=== PATIENT | female | born 1995 | race Caucasian/White ===

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

== ENCOUNTER 2017-01-04 21:39 | Emergency (ER) | payer OTHER ==
--- NOTE | 2017-01-04 21:45 | UC ---
Ear Complaint HPI - HPI Summary HPI Summary: 21 year old female with ear pain and some jaw pain as well. No fevers. no Chills. (+) sick exposure at school. - History of Current Complaint Stated Complaint: EAR/JAW PAIN Time Seen by Provider: 01/04/17 21:42 Hx Obtained From: Patient Hx Last Menstrual Period: 12/16/16 Onset/Duration: Gradual Onset Severity Initially: Mild Severity Currently: Moderate Associated Signs/Symptoms: Negative: Discharge - Allergies/Home Medications Allergies/Adverse Reactions: Allergies Allergy/AdvReac Type Severity Reaction Status Date / Time No Known Allergies Allergy Verified 01/04/17 21:46 Home Medications: Home Medications Acetaminophen [Acetaminophen Extra Stren] 1,000 mg PO ONCE 01/04/17 [History Confirmed 01/04/17] PMH/Surg Hx/FS Hx/Imm Hx Previously Healthy: Yes - Surgical History Surgical History: None - Family History Known Family History: Positive: None - Social History Occupation: Student Lives: Dormitory/Roommates Alcohol Use: Weekly Substance Use Type: None Smoking Status (MU): Never Smoked Tobacco - Immunization History Most Recent Influenza Vaccination: no Review of Systems ENT: Ear Ache - and jaw pain All Other Systems Reviewed And Are Negative: Yes Physical Exam Triage Information Reviewed: Yes Appearance: Well-Appearing, No Pain Distress, Well-Nourished Vital Signs Reviewed: Yes Eye Exam: Normal ENT Exam: Normal ENT: Positive: TM dull - left, Other: - left TMJ tenderness Dental Exam: Normal Neck exam: Normal Neck: Positive: 1 Respiratory Exam: Normal Cardiovascular Exam: Normal Musculoskeletal Exam: Normal Neurological Exam: Normal Psychological Exam: Normal Skin Exam: Normal Ear Complaint Course/Dx - Differential Dx/Diagnosis Differential Diagnosis/HQI/PQRI: Otitis Externa, Otitis Media, Perforated TM, URI Provider Diagnoses: TMJ left sided and left serous effusion Discharge - Discharge Plan Condition: Good Disposition: HOME Prescriptions: Naproxen [Naprosyn 500 mg] 500 mg PO BID PRN #20 tab PRN Reason: Pain (Dental) Patient Education Materials: Temporomandibular Disorder (ED) Referrals: Non Staff,Doctor [Primary Care Provider] - 4 Days (If needed ) Additional Instructions: For the serous effusion / fluid in the ear please use daily allergy medications like claritin.
[2017-01-04 21:46] VITALS: BP 119/72
== END 2017-01-04 21:56 | disposition home or self-care (01) ==
LOC: UCCORT 21:39
DX: M26.602 Left temporomandibular joint disorder, unspecified (principal); H65.92 Unspecified nonsuppurative otitis media, left ear
CPT/HCPCS: 99212; G0463

== ENCOUNTER 2017-01-25 12:36 | Emergency (ER) | payer MEDICAID, OTHER ==
[2017-01-25 14:03] VITALS: BP 127/64
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
== END 2017-01-25 14:58 | disposition home or self-care (01) ==
LOC: UCCORT 12:36
DX: S39.94XA Unspecified injury of external genitals, initial encounter (principal); X58.XXXA Exposure to other specified factors, initial encounter; Y93.89 Activity, other specified; Y92.9 Unspecified place or not applicable; N93.9 Abnormal uterine and vaginal bleeding, unspecified
CPT/HCPCS: 99211; G0463

== ENCOUNTER 2017-07-04 12:53 | Emergency (ER) | payer OTHER ==
[2017-07-04 13:19] VITALS: BP 111/67
--- NOTE | 2017-07-04 13:32 | UC ---
General HPI - HPI Summary HPI Summary: For the past few weeks she has been getting flushed, palpitations and "worked up " when she is in crowds or being called up on class. She denies cardiac ischemic equivalents, syncope, swelling, PND, orthopnea. She has had no problems in the past and has played sports for years without excersize intolerance, syncope. Her mother tells her that she has had a murmur since childhood. Recently she has been concerned that she is only eating fast food and not excersizing enough. Sexually active only with condoms and currently is on her period. Denies drugs or smoking. Etoh on the weekends alone. - History of Current Complaint Chief Complaint: UCGeneralIllness Stated Complaint: PALPITATIONS Time Seen by Provider: 07/04/17 13:05 Hx Obtained From: Patient Hx Last Menstrual Period: 06/30/17 Onset/Duration: Gradual Onset, Lasting Minutes Timing: Constant Onset Severity: Moderate Current Severity: None Pain Intensity: 3 Associated Signs & Symptoms: Positive: Palpitations. Negative: Abdominal Pain, Confusion, Cough, Chest Pain, Decreased Responsiveness, Dizziness, Diarrhea, Dysuria, Fever, Headache, Nausea, Recent Medication Changes, Syncope, SOB - Allergy/Home Medications Allergies/Adverse Reactions: Allergies Allergy/AdvReac Type Severity Reaction Status Date / Time No Known Allergies Allergy Verified 07/04/17 13:01 Home Medications: Home Medications Fluconazole [Diflucan 150 MG (NF)] 150 mg PO ONCE 07/04/17 [History Confirmed ] metroNIDAZOLE TAB* [Flagyl 250 mg TAB*] 500 mg PO BID 07/04/17 [History Confirmed 07/04/17] PMH/Surg Hx/FS Hx/Imm Hx Previously Healthy: Yes - Surgical History Surgical History: None - Family History Known Family History: Positive: None - Social History Occupation: Student Alcohol Use: Weekly Substance Use Type: None Smoking Status (MU): Never Smoked Tobacco Have You Smoked in the Last Year: No - Immunization History Most Recent Influenza Vaccination: no Review of Systems Cardiovascular: Palpitations All Other Systems Reviewed And Are Negative: Yes Physical Exam Triage Information Reviewed: Yes Appearance: Well-Appearing, No Pain Distress, Well-Nourished Vital Signs: Initial Vital Signs Temp 98.4 F 07/04/17 13:04 Pulse 72 07/04/17 13:04 Resp 18 07/04/17 13:04 BP 111/67 07/04/17 13:04 Pulse Ox 99 07/04/17 13:04 Vital Signs Reviewed: Yes Eyes: Positive: Conjunctiva Clear. Negative: Conjunctiva Inflamed ENT: Positive: Hearing grossly normal, Pharynx normal, TMs normal, Uvula midline Neck: Positive: Supple, Nontender, No Lymphadenopathy Respiratory: Positive: Lungs clear, Normal breath sounds, No respiratory distress, No accessory muscle use. Negative: Respiratory distress, Decreased breath sounds, Accessory muscle use, Crackles, Rhonchi, Stridor, Wheezing Cardiovascular Exam: Other - 04/07 holosystolic murmur over the left 3rd intercostal space. Cardiovascular: Positive: RRR, Pulses Normal, Brisk Capillary Refill Abdomen Description: Positive: No Organomegaly, Soft. Negative: Distended, Guarding Musculoskeletal: Positive: Strength Intact, ROM Intact, No Edema Neurological: Positive: Alert, Muscle Tone Normal. Negative: Fatigued Psychological: Positive: Age Appropriate Behavior Skin: Negative: rashes Course/Dx - Course Course Of Treatment: We have considered drug use but there is no stigmata of use. She adamantly denies it. 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 THese symptoms only occur when she is onthe spot in crowds or in class when called upon. She agrees to speak with mother and with student health to consider counselling. She denies depression or suicidal thoughts without hesitation. - Differential Dx - Multi-Symptom Provider Diagnoses: palpitations. anxiety. Discharge - Sign-Out/Discharge Documenting (check all that apply): Discharge - Discharge Plan Condition: Good Disposition: HOME Patient Education Materials: Heart Palpitations (ED) Referrals: Non Staff,Doctor [Primary Care Provider] - Additional Instructions: Discuss your concerns with parents and student health to come up with a plan about possible stress relief, counselling. - Billing Disposition and Condition Condition: GOOD Disposition: HOME
== END 2017-07-04 13:30 | disposition home or self-care (01) ==
LOC: UCCORT 12:53
DX: R00.2 Palpitations (principal); F41.9 Anxiety disorder, unspecified
CPT/HCPCS: 99211; G0463

== ENCOUNTER 2017-12-05 20:41 | Emergency (ER) | payer OTHER ==
[2017-12-05 20:57] VITALS: BP 119/74
--- NOTE | 2017-12-05 21:44 | ED ---
GI/ HPI - HPI Summary HPI Summary: 22 yr old with complaint of a brownish vaginal discharge that began two days ago and with slight feeling of itching. No itching or irritation today. No abdominal, pelvic or flank pain. No fever or chills. The patient denies NVD. She has had two sexual partners in the past two months. She had sex last four days ago. She denies prior STD. Denies prior pregnancies. - History of Current Complaint Chief Complaint: UCGU Time Seen by Provider: 12/05/17 21:08 Stated Complaint: PERSONAL Hx Last Menstrual Period: 11/19/17 on BCP Pain Intensity: 0 - Allergy/Home Medications Allergies/Adverse Reactions: Allergies Allergy/AdvReac Type Severity Reaction Status Date / Time No Known Allergies Allergy Verified 12/05/17 20:57 PMH/Surg Hx/FS Hx/Imm Hx Infectious Disease History: No Infectious Disease History: Denies: Traveled Outside the [place] in Last 30 Days - Family History Known Family History: Positive: None - Social History Occupation: Student Lives: Dormitory/Roommates Alcohol Use: Weekly Alcohol Amount: weekends Substance Use Type: Reports: None Smoking Status (MU): Never Smoked Tobacco Have You Smoked in the Last Year: No Review of Systems Constitutional: Negative Negative: Abdominal Pain Positive: discharge All Other Systems Reviewed And Are Negative: Yes Physical Exam Triage Information Reviewed: Yes Vital Signs On Initial Exam: Initial Vitals Temp Pulse Resp BP Pulse Ox 97.8 F 80 15 119/74 99 12/05/17 20:53 12/05/17 20:53 12/05/17 20:53 12/05/17 20:53 12/05/17 20:53 Vital Signs Reviewed: Yes Appearance: Positive: Well-Appearing, No Pain Distress Skin: Positive: Warm, Skin Color Reflects Adequate Perfusion Head/Face: Positive: Normal Head/Face Inspection Eyes: Positive: EOMI ENT: Positive: Normal ENT inspection Neck: Positive: Nontender Respiratory/Lung Sounds: Positive: Clear to Auscultation, Breath Sounds Present Cardiovascular: Positive: RRR. Negative: Murmur Abdomen Description: Positive: Nontender. Negative: CVA Tenderness (R), CVA Tenderness (L) Pelvic Exam: Positive: External Exam Normal, Bimanual Exam Normal, No Cerv. Motion Tender, Discharge - scant yellowish discharge with mild maloderous smell.. Negative: Active Bleeding, Mass, Tender Adnexa, Tender Uterus, Ulcers Neurological: Positive: Sensory/Motor Intact, Alert, Oriented to Person Place, Time, CN Intact II-III, Normal Gait, Speech Normal Psychiatric: Positive: Normal AVPU Assessment: Alert - Tai Coma Scale Best Eye Response: 4 - Spontaneous Best Motor Response: 6 - Obeys Commands Best Verbal Response: 5 - Oriented Coma Scale Total: 15 Diagnostics - Vital Signs Vital Signs Temp Pulse Resp BP Pulse Ox 12/05/17 20:53 97.8 F 80 15 119/74 99 - Laboratory Lab Results: Lab Results 12/05/17 Range/Units 21:34 POC Urine Color Yellow POC Urine Clarity Turbid POC Urine pH 6.5 (5-9) POC Ur Specif [place] 1.025 (1.010-1.030) POC Urine Protein Negative (Negative) POC Ur Glucose (UA) Negative (Negative) POC Urine Ketones Negative (Negative) POC Urine Blood Negative (Negative) POC Urine Nitrite Negative (Negative) POC Urine Bilirubin Negative (Negative) POC Urine Urobilinogen 1.0 (Negative) POC U Leukocyte Esteras Negative (Negative) Lab Statement: Any lab studies that have been ordered have been reviewed, and results considered in the medical decision making process. GIGU Course/Dx - Course Course Of Treatment: 22 yr old female with vaginal discharge. Plan DC home. She requests not to be treated until her vaginal and cervical test come back. - Diagnoses Provider Diagnoses: Vaginal discharge Discharge - Sign-Out/Discharge Documenting (check all that apply): Patient Departure All imaging exams completed and their final reports reviewed: No Studies - Discharge Plan Condition: Good Disposition: HOME Patient Education Materials: Vaginal Discharge (ED) Referrals: Non Staff,Doctor [Primary Care Provider] - [facility] [Outside] - 2 Days [facility] [Outside] - 2 Days - Billing Disposition and Condition Condition: GOOD Disposition: Home
== END 2017-12-05 21:49 | disposition home or self-care (01) ==
LOC: UCCORT 20:41
DX: N89.8 Other specified noninflammatory disorders of vagina (principal)
CPT/HCPCS: 81003; 84702; 87480; 87491; 87510; 87591; 99212; G0463